=== PATIENT | female | born 1985 | race Caucasian/White ===

== ENCOUNTER 2018-12-26 08:13 | Emergency (ER) | payer BC, OTHER ==
[2018-12-26] MEDS ORDERED: Albuterol-Ipratrop 3 mg / 0.5 (3 ml) UD INH STA (08:37)
[2018-12-26] MEDS ORDERED: Sodium Chloride 0.9% 500 ML IV STA ×2 (08:38→09:19)
--- NOTE | 2018-12-26 08:59 | ED PDOC ---
History of Present Illness History of Present Illness: 33 year old female with no past medical history who is presenting to the ED for evaluation of flu-like symptoms ongoing since yesterday. Patient states that she woke up around 3 am with chest tightness and an achy back. She reports having similar symptoms in the past and admits that her boyfriend has similar symptoms. Of note, patient admits that she had been dealing with a patient who had RSV 2 days ago and states she has a fever with a Tmax of 100.1. She denies any palpitations and states that she has not taken any medications for symptoms. PMD: none provided HPI: Influenza Time Seen by Provider: 12/26/18 08:26 Chief Complaint: Flu-like Symptoms Chief Complaint (Provider): Flu-like Symptoms History Per: Patient Exam Limitations: no limitations Onset/Duration Of Symptoms: Days Symptoms include: fever, bodyaches, cough. denies: chest pain Past Medical History Reviewed: Historical Data, Nursing Documentation, Vital Signs - Medical History PMH: No Chronic Diseases - Surgical History Surgical History: No Surg Hx - Family History Family History: States: Unknown Family Hx - Social History Current smoker - smoking cessation education provided: No Alcohol: None Drugs: Denies - Home Medications Home Medications: Ambulatory Orders Medication Instructions Recorded Albuterol HFA [Ventolin HFA 90 2 puff IH [id number] PRN #1 bottle 12/26/18 mcg/actuation (8 g)] Cephalexin [cephalexin] 500 mg PO QID #28 cap 12/26/18 - Allergies Allergies/Adverse Reactions: Allergies Allergy/AdvReac Type Severity Reaction Status Date / Time No Known Allergies Allergy Verified 12/26/18 08:22 Review of Systems ROS Statement: Except As Marked, All Systems Reviewed And Found Negative Constitutional: Positive for: Fever, Other (body aches ) Cardiovascular: Positive for: Other (tightness ) Respiratory: Positive for: Cough Physical Exam - Reviewed Nursing Documentation Reviewed: Yes Vital Signs Reviewed: Yes - Physical Exam Appears: Positive for: Non-toxic, No Acute Distress Head Exam: Positive for: ATRAUMATIC, NORMAL INSPECTION, NORMOCEPHALIC Skin: Positive for: Normal Color, Warm, DRY Eye Exam: Positive for: EOMI, Normal appearance, PERRL ENT: Positive for: Normal ENT Inspection Cardiovascular/Chest: Positive for: Regular Rate, Rhythm. Negative for: Murmur Respiratory: Positive for: Normal Breath Sounds. Negative for: Wheezing, Respiratory Distress Gastrointestinal/Abdominal: Positive for: Normal Exam, Soft. Negative for: Tenderness Extremity: Positive for: Normal ROM. Negative for: Deformity, Swelling Neurological/Psych: Positive for: Awake, Alert, Normal Tone, Oriented. Negative for: Motor/Sensory Deficits Medical Decision Making Medical Decision Making: Time: 8:38 Plan: --CMP --ED Urine --ED Urine Dipstick --CBC --D Dimer --Coags --Chest X-ray --Duoneb 3 ml INH --IV FLuids --Peak Flow Pre/Post TX --Influenza A B --Urinalysis Accession No. : [id number] Patient Name / ID : SAUL HENDERSON / [id number] Exam Date : 12/26/2018 08:46:06 ( Approved ) Study Comment : Sex / Age : F / 33Y Creator : Bart Johns MD Dictator : Bart Johns MD Thickener Operator : Greaser And Oiler : Bart Johns MD Approver2 : Report Date : 12/26/2018 09:55:48 My Comment : Date of service: 12/26/2018 HISTORY: Cough COMPARISON: Comparison chest dated 01/04/2015 TECHNIQUE: Chest PA and lateral views FINDINGS: LUNGS: No active pulmonary disease. PLEURA: No significant pleural effusion identified. No pneumothorax apparent. CARDIOVASCULAR: No aortic atherosclerotic calcification present. Normal cardiac size. No pulmonary vascular congestion. OSSEOUS STRUCTURES: No significant abnormalities. VISUALIZED UPPER ABDOMEN: Normal. OTHER FINDINGS: None. IMPRESSION: No active disease. Scribe Attestation: Documented by Prema Butterfield, acting as a scribe for Shira Orellana MD. Provider Scribe Attestation: All medical record entries made by the Scribe were at my direction and personally dictated by me. I have reviewed the chart and agree that the record accurately reflects my personal performance of the history, physical exam, medical decision making, and the department course for this patient. I have also personally directed, reviewed, and agree with the discharge instructions and disposition. - Laboratory Results Result Diagrams: 12/26/18 08:50 12/26/18 08:50 Disposition - Clinical Impression Clinical Impression: UTI (urinary tract infection), Bronchospasm - Disposition Disposition: Routine/Home Disposition Time: 12:36 Condition: IMPROVED Additional Instructions: FOLLOW-UP WITH PMD FOR REEVALUATION. Prescriptions: Albuterol HFA [Ventolin HFA 90 mcg/actuation (8 g)] 2 puff IH [id number] PRN #1 bottle PRN Reason: Shortness Of Breath Cephalexin [cephalexin] 500 mg PO QID #28 cap Instructions: Urinary Tract Infections in Adults Forms: [facility] (Thai)
[2018-12-26 09:05] VITALS: O2SAT 98
[2018-12-26 09:11] LABS: BASO # 0.1 K/uL (0.0-0.2); BASO % 0.3 % (0.0-2.0); EOS % 0.1 % (0.0-4.0); HEMOGLOBIN 13.2 g/dL (12.0-16.0); LYMPH # 1.3 K/uL (1.0-4.3); LYMPH % 5.7 % (20.0-40.0); MEAN CELL VOLUME 87.8 fl (81.0-99.0); MEAN CORPUSCULAR HEMOGLOBIN 28.5 pg (27.0-31.0); MEAN CORPUSCULAR HGB CONC 32.4 g/dL (33.0-37.0); MONO # 0.5 K/uL (0.0-0.8); NEUT # 21.3 K/uL (1.8-7.0); NEUT % 91.9 % (50.0-75.0); PLATELET COUNT 233 K/uL (130-400); RBC 4.63 Mil/uL (3.80-5.20); RED CELL DISTRIBUTION WIDTH 13.6 % (11.5-14.5); WHITE BLOOD COUNT 23.2 K/uL (4.8-10.8)
[2018-12-26 09:21] LABS: ALB/GLOB RATIO 1.4 (1.0-2.1); ALBUMIN 4.3 g/dL (3.5-5.0); ALT/SGPT 29 U/L (9-52); AST/SGOT 29 U/L (14-36); BLOOD UREA NITROGEN 13 mg/dl (7-17); CALCIUM 9.2 mg/dL (8.4-10.2); GFR NON-AFRICAN AMERICAN > 60
[2018-12-26 09:30] LABS: PARTIAL THROMBOPLASTIN TIME 27.9 Seconds (25.6-37.1)
[2018-12-26 09:33] LABS: D DIMER < 200 ng/mlDDU (0-230)
--- NOTE | 2018-12-26 09:59 | RAD ---
Date of service: 12/26/2018 HISTORY: Cough COMPARISON: Comparison chest dated 01/04/2015 TECHNIQUE: Chest PA and lateral views FINDINGS: LUNGS: No active pulmonary disease. PLEURA: No significant pleural effusion identified. No pneumothorax apparent. CARDIOVASCULAR: No aortic atherosclerotic calcification present. Normal cardiac size. No pulmonary vascular congestion. OSSEOUS STRUCTURES: No significant abnormalities. VISUALIZED UPPER ABDOMEN: Normal. OTHER FINDINGS: None. IMPRESSION: No active disease.
[2018-12-26 10:06] LABS: SQUAMOUS EPITHIAL 9 /hpf (0-5); URINE BACTERIA OCC (<OCC); URINE BILIRUBIN NEGATIVE (NEGATIVE); URINE BLOOD NEGATIVE (NEGATIVE); URINE CLARITY CLOUDY (Clear); URINE COLOR YELLOW (YELLOW); URINE GLUCOSE (UA) NEG (NEGATIVE); URINE LEUKOCYTE ESTERASE NEG Leu/uL (Negative); URINE PROTEIN NEGATIVE (NEGATIVE); URINE UROBILINOGEN 0.2-1.0 mg/dL (0.2-1.0)
[2018-12-26 11:11] LABS: BANDS 3 % (0-2); LARGE PLATELETS PRESENT; LYMPHOCYTE 7 % (20-50); MONOCYTE 2 % (0-10); NEUTROPHIL 88 % (42-75); PLATELET ESTIMATE NORMAL (NORMAL); TOTAL CELLS COUNTED 100
[2018-12-26] MEDS ORDERED: cefTRIAXone (Rocephin) 1 gm Inj ONE (11:48)
[2018-12-26 13:07] VITALS: BP 110/70; PULSE 74; RESP 20; TEMP 98.6
== END 2018-12-26 13:07 | disposition home or self-care (01) ==
LOC: H.ER 08:13
DX: N39.0 Urinary tract infection, site not specified (principal); J98.01 Acute bronchospasm
CPT/HCPCS: 71046; 80053; 81003; 81025; 85025; 85378; 85610; 85730; 87086; 87804; 96360; 99283; J0696; J7030; J7040